=== PATIENT | female | born 1950 | race Caucasian/White ===

== ENCOUNTER → 2021-07-01 18:47 | Outpatient (BNVA) | payer MEDICARE, SELFPAY | PROVIDERS: Family Provider Family Medicine; PCP Nurse Practitioner; Visit Provider Emergency Medicine | DX: Z20.822 Contact with and (suspected) exposure to COVID-19 (principal); J40 Bronchitis, not specified as acute or chronic | CPT/HCPCS: 87635 ==

== ENCOUNTER 2022-02-12 06:00 | Outpatient (RCR) | payer MEDICARE, SELFPAY | END 2022-02-15 23:59 | disposition home or self-care (01) | LOC: MOT 06:00 | PROVIDERS: PCP Nurse Practitioner; Referring Provider Nurse Practitioner; Visit Provider Nurse Practitioner | DX: I89.0 Lymphedema, not elsewhere classified (principal) | CPT/HCPCS: 97140; 97166 ==

== ENCOUNTER 2022-02-16 06:00 | Outpatient (RCR) | payer MEDICARE, SELFPAY | END 2022-02-20 23:59 | disposition home or self-care (01) | LOC: MOT 06:00 | PROVIDERS: PCP Nurse Practitioner; Referring Provider Nurse Practitioner; Visit Provider Nurse Practitioner | DX: I89.0 Lymphedema, not elsewhere classified (principal) | CPT/HCPCS: 97140 ==

== ENCOUNTER 2022-09-26 06:00 | Outpatient (RCR) | payer MEDICARE, SELFPAY | END 2022-10-17 23:59 | disposition home or self-care (01) | LOC: MOT 06:00 | PROVIDERS: PCP Nurse Practitioner; Visit Provider Nurse Practitioner | DX: I89.0 Lymphedema, not elsewhere classified (principal) | CPT/HCPCS: 97140; 97166 ==

== ENCOUNTER → 2022-11-14 13:39 | Outpatient (BNVA) | payer MEDICARE, SELFPAY | PROVIDERS: PCP Nurse Practitioner; Visit Provider Emergency Medicine | DX: I50.9 Heart failure, unspecified (principal); M25.561 Pain in right knee; I10 Essential (primary) hypertension; G89.29 Other chronic pain; M25.562 Pain in left knee; E11.9 Type 2 diabetes mellitus without complications | CPT/HCPCS: 71046; 73562; 80048; 83036; 83880 ==